=== PATIENT | female | born 1945 ===

== ENCOUNTER 2021-11-12 20:08 | Inpatient (IN) | payer OTHER, MEDICARE ==
[~2021-11-12 20:08] MED LIST: ISOVUE-370 76%-LOCM 1 ML ONE
[2021-11-12 20:26] LABS: #Eosinphils 0.2 thou/uL (0.0-0.7); #Lymphocytes 2.2 thou/uL (1.20-3.40); #Monocytes 0.6 thou/uL (0.11-0.59); #Neutrophils 7.9 thou/uL (1.40-6.50); %Eosinophils 2.3 % (0.0-10.0); %Lymphocytes 19.6 % (21.0-51.0); %Monocytes 5.6 % (0.0-10.0); %Neutrophils 72.5 % (42.0-75.0); Hemoglobin 14.8 g/dL (12.0-16.0); Mean Corpuscular HGB CONC 31.9 g/dL (32.0-36.0); Mean Corpuscular Hemoglobin 29.5 pg (27.0-31.0); Mean Corpuscular Volume 92.4 fL (78.0-98.0); Mean Platelet Volume 7.6 fL (7.4-10.4); Platelet Count 175 thou/uL (130-400); RBC Distribution Width 13.4 % (11.5-14.5); Red Blood Cell (RBC) Count 5.03 mill/uL (4.20-5.40); White Blood Cell (WBC) Count 10.9 thou/uL (4.8-10.8)
[2021-11-12 20:38] LABS: INR-International Normal Ratio 1.2; Prothrombin Time 15.2 sec (12.0-14.7)
[2021-11-12] MEDS ORDERED: CEFAZOLIN 1 GM VIAL ONE (20:43)
[2021-11-12] MEDS ORDERED: Fentanyl 100 MCG/2 ML VIAL ONE ×3 (20:43→23:28)
[2021-11-12] MEDS ORDERED: Boostrix 0.5 ML (Tdap) VIAL ONE (20:43)
[2021-11-12 20:46] LABS: ALT (SGPT) 40 U/L (8-55); AST (SGOT) 45 U/L (5-34); Albumin 3.8 g/dL (3.4-4.8); Alcohol Less than 10 mg/dL (Less than 10); Alkaline Phosphatase 70 U/L (40-110); Anion Gap 18 mmol/L (10-20); BUN (Urea Nitrogen) 26 mg/dL (9.8-20.1); Bilirubin, Total 0.9 mg/dL (0.2-1.2); Calc. Creatinine Clearance 0 mL/min (70-130); Carbon Dioxide 19 mmol/L (23-31); Chloride 111 mmol/L (98-107); Globulin 2.4 g/dL (2.4-3.5); Glucose 136 mg/dL (83-110); Protein, Total 6.2 g/dL (5.8-8.1); Sodium 144 mmol/L (136-145)
[2021-11-12] MEDS ORDERED: Tranexamic Acid 1,000 MG/10 ML VIAL ONE (21:08)
[2021-11-12] MEDS ORDERED: Ondansetron PF 4 MG/2 ML Vial ONE (21:34)
[2021-11-12] MEDS ORDERED: Ondansetron ODT 4 MG TAB PO PRN (21:35)
[2021-11-12] MEDS ORDERED: Dextrose 5% in Water 1,000 ML IV PRN (21:35)
[2021-11-12] MEDS ORDERED: Dextrose 50% Abboject 50 ML SYRINGE SLOW IVP PRN (21:35)
[2021-11-12] MEDS ORDERED: hydrALAZINE 20 MG/ML VIAL SLOW IVP PRN (21:35)
[2021-11-12] MEDS ORDERED: Ondansetron PF 4 MG/2 ML Vial IVP PRN (21:35)
[2021-11-12] MEDS ORDERED: Sodium Chloride 0.9% 1,000 ML IV SCH (21:45)
[2021-11-12] MEDS ORDERED: Acetaminophen/Codeine 30-300mg Tablet PO PRN (21:48)
[2021-11-12 22:28] LABS: Magnesium 1.8 mg/dL (1.6-2.6); Phosphorus 3.5 mg/dL (2.3-4.7)
[2021-11-12 23:19] LABS: SARS-CoV-2 NAA Rapid Test Not Detected (NotDetected)
[2021-11-12 23:32] LABS: Lactic Acid 3.2 mmol/L (0.5-2.2)
[2021-11-12] MEDS ORDERED: Promethazine HCl 25 MG/ML VIAL IM PRN (23:46)
[2021-11-13 00:10] LABS: Hemoglobin 13.5 g/dL (12.0-16.0); Mean Corpuscular HGB CONC 31.3 g/dL (32.0-36.0); Mean Corpuscular Hemoglobin 29.7 pg (27.0-31.0); Mean Corpuscular Volume 94.7 fL (78.0-98.0); Mean Platelet Volume 7.9 fL (7.4-10.4); Platelet Count 131 thou/uL (130-400); RBC Distribution Width 13.3 % (11.5-14.5); Red Blood Cell (RBC) Count 4.54 mill/uL (4.20-5.40); White Blood Cell (WBC) Count 12.8 thou/uL (4.8-10.8)
[2021-11-13] MEDS: Acetaminophen 325 MG TAB PO SCH ×5 (00:52→23:36)
[2021-11-13] MEDS: Fentanyl 100 MCG/2 ML VIAL SLOW IVP PRN ×2 (01:16→05:15)
[2021-11-13] MEDS: Scopolamine 1.5 mg/72 hour Patch TD SCH (01:40)
[2021-11-13] MEDS ORDERED: Magnesium 2 GM/50 ML(in water) 2 GM in Premix Bag 1 BAG IVPB SCH (02:00)
[2021-11-13 03:46] LABS: Anion Gap 14 mmol/L (10-20); BUN (Urea Nitrogen) 26 mg/dL (9.8-20.1); Calc. Creatinine Clearance 74 mL/min (70-130); Carbon Dioxide 17 mmol/L (23-31); Chloride 113 mmol/L (98-107); Potassium 4.4 mmol/L (3.5-5.1); Sodium 140 mmol/L (136-145)
[2021-11-13 03:47] LABS: Calcium 8.6 mg/dL (7.8-10.44); Glucose 186 mg/dL (83-110); Magnesium 1.6 mg/dL (1.6-2.6)
[2021-11-13 06:59] LABS: #Lymphocytes 0.7 thou/uL (1.20-3.40); #Monocytes 0.7 thou/uL (0.11-0.59); #Neutrophils 7.7 thou/uL (1.40-6.50); %Basophils 0.3 % (0.0-1.0); %Eosinophils 0.3 % (0.0-10.0); %Lymphocytes 7.8 % (21.0-51.0); %Monocytes 7.5 % (0.0-10.0); Hemoglobin 13.2 g/dL (12.0-16.0); Mean Corpuscular HGB CONC 32.6 g/dL (32.0-36.0); Mean Platelet Volume 7.8 fL (7.4-10.4); Platelet Count 111 thou/uL (130-400); RBC Distribution Width 13.2 % (11.5-14.5); Red Blood Cell (RBC) Count 4.38 mill/uL (4.20-5.40); White Blood Cell (WBC) Count 9.1 thou/uL (4.8-10.8)
[2021-11-13 07:02] LABS: CK (CPK) 352 U/L (29-168); Lactic Acid 3.2 mmol/L (0.5-2.2); Phosphorus 3.9 mg/dL (2.3-4.7)
[2021-11-13] MEDS: Gabapentin 100 MG CAP PO SCH ×3 (08:07→21:27)
[2021-11-13] MEDS: Senokot S 8.6-50 MG TAB PO SCH ×2 (08:07→21:26)
[2021-11-13] MEDS: Polyethylene Glycol 3350 17 GM Packet PO SCH (08:07)
[2021-11-13] MEDS ORDERED: Famotidine 20 MG TAB PO SCH (09:00)
[2021-11-13] MEDS ORDERED: Fentanyl 100 MCG/2 ML VIAL SLOW IVP PRN (09:06)
[2021-11-13] MEDS: Sodium Chloride 0.9% 1,000 ML IV SCH ×2 (11:14→23:37)
[2021-11-13] MEDS: Acetaminophen/Codeine 30-300mg Tablet PO SCH ×2 (13:32→19:58)
[2021-11-13] MEDS: Cyclobenzaprine 10 MG TAB PO PRN (13:34)
[2021-11-13] MEDS ORDERED: SUGAMMADEX SODIUM 200 MG/2 ML VIAL ONE (16:50)
[2021-11-13] MEDS ORDERED: fentaNYL Citrate/PF 100 MCG/2 ML SYRINGE ONE ×2 (16:50→18:43)
[2021-11-13] MEDS ORDERED: Bupivacaine 0.25% HCL 30 ML VIAL ONE (17:06)
[2021-11-13] MEDS ORDERED: Lidocaine 1% w/Epinephrine 1:100K 20 ML VIAL ONE (17:06)
[2021-11-13] MEDS ORDERED: Dexamethasone 20 MG/5 ML VIAL ONE (17:25)
[2021-11-13] MEDS ORDERED: PHENYLEPHRINE-NS 100 MCG/ML 10 ML SYRINGE ONE (17:25)
[2021-11-13] MEDS ORDERED: Ondansetron PF 4 MG/2 ML Vial ONE (17:25)
[2021-11-13] MEDS ORDERED: PROPOFOL 200 MG/20 ML VIAL ONE (17:25)
[2021-11-13] MEDS ORDERED: Lidocaine 1% PF 5 ML VIAL ONE (17:25)
[2021-11-13] MEDS ORDERED: ePHEDrine 50 MG/ML VIAL ONE (17:25)
[2021-11-13] MEDS ORDERED: Promethazine HCl 25 MG/ML VIAL IM PRN (18:39)
[2021-11-13] MEDS ORDERED: Ondansetron HCl/PF 4 MG/2 ML Vial IVP PRN (18:39)
[2021-11-13] MEDS ORDERED: Promethazine HCl 25 MG/ML VIAL IVPB PRN (18:39)
[2021-11-13] MEDS: Simvastatin 10 MG TAB PO SCH (21:27)
[2021-11-14] MEDS: Acetaminophen/Codeine 30-300mg Tablet PO SCH ×5 (00:29→23:19)
[2021-11-14] MEDS: Cyclobenzaprine 10 MG TAB PO PRN (00:30)
[2021-11-14] MEDS: Sodium Chloride 0.9% 1,000 ML IV SCH ×3 (04:31→21:25)
[2021-11-14] MEDS: Acetaminophen 325 MG TAB PO SCH ×4 (05:53→23:19)
[2021-11-14 06:16] LABS: #Lymphocytes 0.4 thou/uL (1.20-3.40); #Monocytes 0.4 thou/uL (0.11-0.59); %Basophils 0.1 % (0.0-1.0); %Eosinophils 0.2 % (0.0-10.0); %Lymphocytes 6.4 % (21.0-51.0); %Monocytes 5.4 % (0.0-10.0); %Neutrophils 87.9 % (42.0-75.0); Hemoglobin 10.6 g/dL (12.0-16.0); Mean Corpuscular HGB CONC 32.4 g/dL (32.0-36.0); Mean Corpuscular Hemoglobin 30.1 pg (27.0-31.0); Platelet Count 98 thou/uL (130-400); RBC Distribution Width 13.3 % (11.5-14.5); Red Blood Cell (RBC) Count 3.52 mill/uL (4.20-5.40); White Blood Cell (WBC) Count 6.8 thou/uL (4.8-10.8)
[2021-11-14 06:41] LABS: Anion Gap 13 mmol/L (10-20); BUN (Urea Nitrogen) 25 mg/dL (9.8-20.1); Calc. Creatinine Clearance 80 mL/min (70-130); Carbon Dioxide 18 mmol/L (23-31); Chloride 109 mmol/L (98-107); Glucose 181 mg/dL (83-110); Phosphorus 2.6 mg/dL (2.3-4.7); Sodium 136 mmol/L (136-145)
[2021-11-14 07:19] LABS: Hemoglobin A1c 5.6 % (4.0-6.0)
[2021-11-14] MEDS ORDERED: PHOS-NAK 1 PKT PACK PO SCH (08:00)
[2021-11-14] MEDS: Gabapentin 100 MG CAP PO SCH (09:19)
[2021-11-14] MEDS: Citalopram 20 MG TAB PO SCH (09:19)
[2021-11-14] MEDS: Senokot S 8.6-50 MG TAB PO SCH ×2 (09:20→21:24)
[2021-11-14] MEDS: Polyethylene Glycol 3350 17 GM Packet PO SCH (09:20)
[2021-11-14] MEDS: Gabapentin 300 MG CAP PO SCH ×2 (14:21→21:24)
[2021-11-14] MEDS: Lidocaine 5% Patch TD SCH (18:44)
[2021-11-14] MEDS: Simvastatin 10 MG TAB PO SCH (21:24)
[2021-11-14] MEDS: Zolpidem Tartrate 5 MG TAB PO PRN (23:19)
[2021-11-15] MEDS: Acetaminophen/Codeine 30-300mg Tablet PO SCH ×4 (05:32→23:07)
[2021-11-15] MEDS: Acetaminophen 325 MG TAB PO SCH ×4 (05:33→23:07)
[2021-11-15] MEDS: Transdermal Patch Removal TOP SCH (05:34)
[2021-11-15 06:09] LABS: #Eosinphils 0.1 thou/uL (0.0-0.7); #Lymphocytes 1.3 thou/uL (1.20-3.40); #Monocytes 0.6 thou/uL (0.11-0.59); #Neutrophils 5.1 thou/uL (1.40-6.50); %Basophils 0.2 % (0.0-1.0); %Eosinophils 1.3 % (0.0-10.0); %Lymphocytes 18.1 % (21.0-51.0); %Monocytes 8.2 % (0.0-10.0); %Neutrophils 72.2 % (42.0-75.0); Hemoglobin 9.7 g/dL (12.0-16.0); Mean Corpuscular HGB CONC 32.1 g/dL (32.0-36.0); Mean Corpuscular Hemoglobin 29.8 pg (27.0-31.0); Mean Corpuscular Volume 92.8 fL (78.0-98.0); Mean Platelet Volume 7.7 fL (7.4-10.4); Platelet Count 91 thou/uL (130-400); RBC Distribution Width 13.4 % (11.5-14.5); Red Blood Cell (RBC) Count 3.25 mill/uL (4.20-5.40)
[2021-11-15 06:28] LABS: Anion Gap 10 mmol/L (10-20); BUN (Urea Nitrogen) 23 mg/dL (9.8-20.1); Calc. Creatinine Clearance 90 mL/min (70-130); Calcium 8.5 mg/dL (7.8-10.44); Carbon Dioxide 22 mmol/L (23-31); Chloride 109 mmol/L (98-107); Glucose 118 mg/dL (83-110); Magnesium 2.1 mg/dL (1.6-2.6); Phosphorus 2.2 mg/dL (2.3-4.7); Potassium 4.2 mmol/L (3.5-5.1); Sodium 137 mmol/L (136-145)
[2021-11-15] MEDS ORDERED: fentaNYL Citrate/PF 100 MCG/2 ML SYRINGE ONE ×2 (07:17→08:58)
[2021-11-15] MEDS ORDERED: Dexmedetomidine 200 MCG/2 ML VIAL ONE (07:17)
[2021-11-15] MEDS ORDERED: Bupivacaine PF 0.5% 30 ML VIAL ONE (07:18)
[2021-11-15] MEDS ORDERED: PROPOFOL 200 MG/20 ML VIAL ONE (07:32)
[2021-11-15] MEDS ORDERED: Lidocaine 1% PF 5 ML VIAL ONE (07:32)
[2021-11-15] MEDS ORDERED: Ondansetron PF 4 MG/2 ML Vial ONE (07:32)
[2021-11-15] MEDS ORDERED: Dexamethasone 20 MG/5 ML VIAL ONE (07:32)
[2021-11-15] MEDS ORDERED: Sodium Chloride 0.9% 100 ML ONE (07:58)
[2021-11-15] MEDS ORDERED: CEFAZOLIN 2 GM VIAL ONE (07:58)
[2021-11-15] MEDS ORDERED: ceFAZolin 2 GM/Dextrose 50 ML 2 GM in Premix Bag 1 BAG IVPB SCH (08:00)
[2021-11-15] MEDS ORDERED: Sodium Phosphate 30 MMOL in Sodium Chloride 0.9% 250 ML 250 ML IVPB SCH (08:15)
[2021-11-15] MEDS: Citalopram 20 MG TAB PO SCH (09:23)
[2021-11-15] MEDS: Polyethylene Glycol 3350 17 GM Packet PO SCH (09:24)
[2021-11-15] MEDS: Senokot S 8.6-50 MG TAB PO SCH ×2 (09:24→20:28)
[2021-11-15] MEDS: Gabapentin 300 MG CAP PO SCH ×3 (09:24→20:27)
[2021-11-15] MEDS ORDERED: Ondansetron HCl/PF 4 MG/2 ML Vial IVP PRN (09:37)
[2021-11-15] MEDS ORDERED: Promethazine HCl 25 MG/ML VIAL IVPB PRN (09:37)
[2021-11-15] MEDS ORDERED: Promethazine HCl 25 MG/ML VIAL IM PRN (09:37)
[2021-11-15] MEDS: CEFAZOLIN 2 GM in Sodium Chloride 0.9% 100 ML IVPB SCH ×2 (15:16→23:13)
[2021-11-15] MEDS: Lidocaine 5% Patch TD SCH (17:09)
[2021-11-15] MEDS: Cyclobenzaprine 10 MG TAB PO PRN (20:28)
[2021-11-15] MEDS: Simvastatin 10 MG TAB PO SCH (20:28)
[2021-11-15] MEDS: Scopolamine 1.5 mg/72 hour Patch TD SCH (23:14)
[2021-11-15] MEDS: Zolpidem Tartrate 5 MG TAB PO PRN (23:14)
[2021-11-16] MEDS: Acetaminophen/Codeine 30-300mg Tablet PO SCH ×4 (05:42→23:42)
[2021-11-16 06:27] LABS: #Lymphocytes 0.7 thou/uL (1.20-3.40); #Monocytes 0.6 thou/uL (0.11-0.59); #Neutrophils 6.6 thou/uL (1.40-6.50); %Eosinophils 0.5 % (0.0-10.0); %Lymphocytes 8.4 % (21.0-51.0); %Monocytes 7.3 % (0.0-10.0); %Neutrophils 83.9 % (42.0-75.0); Hemoglobin 9.4 g/dL (12.0-16.0); Mean Corpuscular HGB CONC 32.8 g/dL (32.0-36.0); Mean Corpuscular Hemoglobin 30.7 pg (27.0-31.0); Mean Corpuscular Volume 93.5 fL (78.0-98.0); Mean Platelet Volume 8.2 fL (7.4-10.4); Platelet Count 107 thou/uL (130-400); RBC Distribution Width 13.4 % (11.5-14.5); Red Blood Cell (RBC) Count 3.06 mill/uL (4.20-5.40); White Blood Cell (WBC) Count 7.8 thou/uL (4.8-10.8)
[2021-11-16 06:36] LABS: Anion Gap 12 mmol/L (10-20); BUN (Urea Nitrogen) 22 mg/dL (9.8-20.1); Calc. Creatinine Clearance 100 mL/min (70-130); Calcium 8.6 mg/dL (7.8-10.44); Carbon Dioxide 24 mmol/L (23-31); Chloride 108 mmol/L (98-107); Glucose 146 mg/dL (83-110); Magnesium 2.1 mg/dL (1.6-2.6); Phosphorus 2.5 mg/dL (2.3-4.7); Potassium 4.5 mmol/L (3.5-5.1); Sodium 139 mmol/L (136-145)
[2021-11-16] MEDS: Transdermal Patch Removal TOP SCH (06:54)
[2021-11-16] MEDS: Acetaminophen 325 MG TAB PO SCH ×4 (06:54→23:41)
[2021-11-16] MEDS ORDERED: PHOS-NAK 1 PKT PACK PO SCH (07:45)
[2021-11-16] MEDS: Citalopram 20 MG TAB PO SCH (08:51)
[2021-11-16] MEDS: Gabapentin 300 MG CAP PO SCH ×3 (08:51→20:54)
[2021-11-16] MEDS: Polyethylene Glycol 3350 17 GM Packet PO SCH (08:52)
[2021-11-16] MEDS: Senokot S 8.6-50 MG TAB PO SCH ×2 (08:52→20:55)
[2021-11-16] MEDS: Lidocaine 5% Patch TD SCH (17:40)
[2021-11-16] MEDS: Simvastatin 10 MG TAB PO SCH (20:55)
[2021-11-16] MEDS: Zolpidem Tartrate 5 MG TAB PO PRN (23:44)
[2021-11-17] MEDS: Acetaminophen 325 MG TAB PO SCH ×4 (04:59→23:56)
[2021-11-17] MEDS: Acetaminophen/Codeine 30-300mg Tablet PO SCH ×4 (05:00→23:55)
[2021-11-17] MEDS: Transdermal Patch Removal TOP SCH (06:42)
[2021-11-17] MEDS: Gabapentin 300 MG CAP PO SCH ×3 (09:05→20:57)
[2021-11-17] MEDS: Polyethylene Glycol 3350 17 GM Packet PO SCH (09:05)
[2021-11-17] MEDS: Citalopram 20 MG TAB PO SCH (09:08)
[2021-11-17] MEDS: Senokot S 8.6-50 MG TAB PO SCH ×2 (09:09→20:57)
[2021-11-17] MEDS: Lidocaine 5% Patch TD SCH (18:32)
[2021-11-17] MEDS: Simvastatin 10 MG TAB PO SCH (20:57)
[2021-11-18] MEDS: Acetaminophen/Codeine 30-300mg Tablet PO SCH ×4 (06:02→23:40)
[2021-11-18] MEDS: Transdermal Patch Removal TOP SCH (06:03)
[2021-11-18] MEDS: Acetaminophen 325 MG TAB PO SCH ×4 (06:03→23:41)
[2021-11-18] MEDS: Gabapentin 300 MG CAP PO SCH ×3 (08:45→20:39)
[2021-11-18] MEDS: Polyethylene Glycol 3350 17 GM Packet PO SCH (08:45)
[2021-11-18] MEDS: Citalopram 20 MG TAB PO SCH (08:45)
[2021-11-18] MEDS: Senokot S 8.6-50 MG TAB PO SCH ×2 (10:24→20:39)
[2021-11-18] MEDS: Lidocaine 5% Patch TD SCH (17:40)
[2021-11-18] MEDS: Zolpidem Tartrate 5 MG TAB PO PRN (20:39)
[2021-11-18] MEDS: Simvastatin 10 MG TAB PO SCH (20:40)
[2021-11-19] MEDS: Scopolamine 1.5 mg/72 hour Patch TD SCH (01:27)
[2021-11-19] MEDS: Acetaminophen/Codeine 30-300mg Tablet PO SCH ×4 (05:56→23:54)
[2021-11-19] MEDS: Acetaminophen 325 MG TAB PO SCH ×4 (05:57→23:55)
[2021-11-19] MEDS: Transdermal Patch Removal TOP SCH (05:58)
[2021-11-19 08:39] LABS: #Eosinphils 0.4 thou/uL (0.0-0.7); #Monocytes 0.6 thou/uL (0.11-0.59); #Neutrophils 4.4 thou/uL (1.40-6.50); %Basophils 0.3 % (0.0-1.0); %Eosinophils 5.7 % (0.0-10.0); %Lymphocytes 15.8 % (21.0-51.0); %Monocytes 9.2 % (0.0-10.0); Hemoglobin 10.1 g/dL (12.0-16.0); Mean Corpuscular HGB CONC 32.4 g/dL (32.0-36.0); Mean Corpuscular Hemoglobin 30.3 pg (27.0-31.0); Mean Corpuscular Volume 93.6 fL (78.0-98.0); Mean Platelet Volume 7.9 fL (7.4-10.4); Platelet Count 149 thou/uL (130-400); RBC Distribution Width 14.1 % (11.5-14.5); Red Blood Cell (RBC) Count 3.34 mill/uL (4.20-5.40); White Blood Cell (WBC) Count 6.3 thou/uL (4.8-10.8)
[2021-11-19] MEDS: Senokot S 8.6-50 MG TAB PO SCH ×2 (09:20→20:46)
[2021-11-19] MEDS: Citalopram 20 MG TAB PO SCH (09:20)
[2021-11-19] MEDS: Polyethylene Glycol 3350 17 GM Packet PO SCH (09:20)
[2021-11-19] MEDS: Gabapentin 300 MG CAP PO SCH ×3 (09:21→20:46)
[2021-11-19] MEDS ORDERED: Iopamidol-370 76% 500 ML 1 ML ONE (11:42)
[2021-11-19] MEDS ORDERED: GASTROGRAFIN 30 ML BOT ONE (11:42)
[2021-11-19] MEDS ORDERED: Magnesium Citrate 300 ML BOT PO SCH (11:45)
[2021-11-19] MEDS ORDERED: Sodium Chloride 0.9% 1,000 ML IV SCH (16:15)
[2021-11-19 16:23] LABS: Anion Gap 13 mmol/L (10-20); BUN (Urea Nitrogen) 21 mg/dL (9.8-20.1); Calc. Creatinine Clearance 105 mL/min (70-130); Calcium 8.7 mg/dL (7.8-10.44); Carbon Dioxide 26 mmol/L (23-31); Chloride 99 mmol/L (98-107); Glucose 102 mg/dL (83-110); Magnesium 1.8 mg/dL (1.6-2.6); Phosphorus 3.7 mg/dL (2.3-4.7); Potassium 4.2 mmol/L (3.5-5.1); Sodium 134 mmol/L (136-145)
[2021-11-19 16:27] LABS: Bacteria/HPF None Seen HPF (None Seen); Bilirubin Negative (Negative); Blood, Urine Negative (Negative); Clarity Clear (Clear); Glucose, Urine (Dipstick) Normal (Negative); Ketone, Urine Negative (Negative); Leukocyte Negative Leu/uL (Negative); Nitrite Negative (Negative); Protein, Urine (Dipstick) Negative (Neg-Trace); RBC/HPF 0-3 HPF (0-3); Specific Gravity, Urine 1.011 (1.002-1.036); Squamous Epithelial 0-3 HPF (0-3); Urobilinogen Normal mg/dL (Less than 2); WBC/HPF 0-3 HPF (0-3)
[2021-11-19 16:29] LABS: Urine Culture Reflex No No
[2021-11-19] MEDS: Lidocaine 5% Patch TD SCH (18:11)
[2021-11-19] MEDS: Ferrous Sulfate 325 MG TAB PO SCH (18:12)
[2021-11-19] MEDS ORDERED: Calcium Carbonate 500 MG ChewTAB PO PRN (18:48)
[2021-11-19] MEDS ORDERED: Sodium Chloride 1 GM TAB PO SCH (19:00)
[2021-11-19] MEDS ORDERED: Furosemide 20 MG/2 ML VIAL SLOW IVP SCH (20:00)
[2021-11-19] MEDS ORDERED: Ketorolac Tromethamine 30 MG/ML VIAL IVP SCH (20:00)
[2021-11-19] MEDS: Ascorbic Acid 500 mg Chewable Tablet PO SCH (20:45)
[2021-11-19] MEDS: Simvastatin 10 MG TAB PO SCH (20:46)
[2021-11-20] MEDS ORDERED: Albuterol 200 PUFF (6.7GM INHALER) INH PRN (03:25)
[2021-11-20] MEDS ORDERED: Furosemide 40 MG/4 ML VIAL SLOW IVP SCH ×2 (05:15)
[2021-11-20] MEDS: Acetaminophen/Codeine 30-300mg Tablet PO SCH ×3 (05:29→18:32)
[2021-11-20] MEDS: Acetaminophen 325 MG TAB PO SCH ×3 (05:29→18:33)
[2021-11-20] MEDS: Transdermal Patch Removal TOP SCH (06:51)
[2021-11-20 07:02] LABS: #Eosinphils 0.2 thou/uL (0.0-0.7); #Lymphocytes 0.9 thou/uL (1.20-3.40); #Monocytes 0.4 thou/uL (0.11-0.59); %Basophils 0.1 % (0.0-1.0); %Eosinophils 2.1 % (0.0-10.0); %Lymphocytes 12.5 % (21.0-51.0); %Neutrophils 80.3 % (42.0-75.0); Hemoglobin 11.3 g/dL (12.0-16.0); Mean Corpuscular HGB CONC 31.3 g/dL (32.0-36.0); Mean Corpuscular Hemoglobin 29.9 pg (27.0-31.0); Mean Corpuscular Volume 95.5 fL (78.0-98.0); Mean Platelet Volume 7.7 fL (7.4-10.4); Platelet Count 176 thou/uL (130-400); RBC Distribution Width 14.4 % (11.5-14.5); Red Blood Cell (RBC) Count 3.79 mill/uL (4.20-5.40); White Blood Cell (WBC) Count 7.5 thou/uL (4.8-10.8)
[2021-11-20 07:21] LABS: Anion Gap 16 mmol/L (10-20); BUN (Urea Nitrogen) 22 mg/dL (9.8-20.1); Calc. Creatinine Clearance 94 mL/min (70-130); Calcium 9.6 mg/dL (7.8-10.44); Carbon Dioxide 25 mmol/L (23-31); Chloride 99 mmol/L (98-107); Glucose 94 mg/dL (83-110); Magnesium 2.1 mg/dL (1.6-2.6); Phosphorus 4.2 mg/dL (2.3-4.7); Potassium 4.3 mmol/L (3.5-5.1); Sodium 136 mmol/L (136-145)
[2021-11-20] MEDS: Senokot S 8.6-50 MG TAB PO SCH ×2 (08:53→21:03)
[2021-11-20] MEDS: Ascorbic Acid 500 mg Chewable Tablet PO SCH ×2 (08:53→21:01)
[2021-11-20] MEDS: Polyethylene Glycol 3350 17 GM Packet PO SCH (08:53)
[2021-11-20] MEDS: Citalopram 20 MG TAB PO SCH (08:54)
[2021-11-20] MEDS: Sodium Chloride 1 GM TAB PO SCH ×3 (08:54→21:03)
[2021-11-20] MEDS: Gabapentin 300 MG CAP PO SCH ×3 (08:54→21:02)
[2021-11-20] MEDS: Ferrous Sulfate 325 MG TAB PO SCH ×2 (08:54→18:31)
[2021-11-20] MEDS: Albuterol 200 PUFF (6.7GM INHALER) INH SCH ×3 (08:55→18:34)
[2021-11-20] MEDS: Lidocaine 5% Patch TD SCH (18:32)
[2021-11-20] MEDS: Enoxaparin Sodium 40 MG/0.4 ML SYRINGE SC SCH (21:01)
[2021-11-20] MEDS: Cyclobenzaprine 10 MG TAB PO PRN (21:01)
[2021-11-20] MEDS: Simvastatin 10 MG TAB PO SCH (21:03)
[2021-11-20] MEDS: Zolpidem Tartrate 5 MG TAB PO PRN (21:04)
[2021-11-21] MEDS: Acetaminophen 325 MG TAB PO SCH ×4 (00:57→18:00)
[2021-11-21] MEDS: Acetaminophen/Codeine 30-300mg Tablet PO SCH ×5 (00:58→18:00)
[2021-11-21] MEDS: Albuterol 200 PUFF (6.7GM INHALER) INH SCH ×4 (01:49→22:44)
[2021-11-21] MEDS: Transdermal Patch Removal TOP SCH (05:51)
[2021-11-21 06:15] LABS: #Lymphocytes 0.5 thou/uL (1.20-3.40); #Monocytes 0.6 thou/uL (0.11-0.59); #Neutrophils 9.8 thou/uL (1.40-6.50); %Eosinophils 0.2 % (0.0-10.0); %Lymphocytes 4.4 % (21.0-51.0); %Monocytes 5.8 % (0.0-10.0); %Neutrophils 89.7 % (42.0-75.0); Mean Corpuscular HGB CONC 31.5 g/dL (32.0-36.0); Mean Corpuscular Hemoglobin 29.8 pg (27.0-31.0); Mean Corpuscular Volume 94.5 fL (78.0-98.0); Mean Platelet Volume 7.5 fL (7.4-10.4); Platelet Count 187 thou/uL (130-400); RBC Distribution Width 14.3 % (11.5-14.5); Red Blood Cell (RBC) Count 3.35 mill/uL (4.20-5.40); White Blood Cell (WBC) Count 10.9 thou/uL (4.8-10.8)
[2021-11-21 06:36] LABS: Anion Gap 16 mmol/L (10-20); BUN (Urea Nitrogen) 34 mg/dL (9.8-20.1); Calc. Creatinine Clearance 79 mL/min (70-130); Calcium 9.4 mg/dL (7.8-10.44); Carbon Dioxide 24 mmol/L (23-31); Chloride 97 mmol/L (98-107); Glucose 136 mg/dL (83-110); Magnesium 2.1 mg/dL (1.6-2.6); Phosphorus 4.1 mg/dL (2.3-4.7); Potassium 4.2 mmol/L (3.5-5.1); Sodium 133 mmol/L (136-145)
[2021-11-21] MEDS: Ascorbic Acid 500 mg Chewable Tablet PO SCH ×2 (09:38→20:32)
[2021-11-21] MEDS: Sodium Chloride 1 GM TAB PO SCH ×3 (09:39→20:32)
[2021-11-21] MEDS: Senokot S 8.6-50 MG TAB PO SCH ×2 (09:39→20:33)
[2021-11-21] MEDS: Citalopram 20 MG TAB PO SCH (09:39)
[2021-11-21] MEDS: Ferrous Sulfate 325 MG TAB PO SCH ×2 (09:39→16:41)
[2021-11-21] MEDS: Gabapentin 300 MG CAP PO SCH ×2 (09:42→20:32)
[2021-11-21] MEDS: Polyethylene Glycol 3350 17 GM Packet PO SCH (11:30)
[2021-11-21] MEDS: Lidocaine 5% Patch TD SCH (18:01)
[2021-11-21] MEDS: Enoxaparin Sodium 40 MG/0.4 ML SYRINGE SC SCH (20:31)
[2021-11-21] MEDS: Cyclobenzaprine 10 MG TAB PO PRN (20:32)
[2021-11-21] MEDS: Simvastatin 10 MG TAB PO SCH (20:32)
[2021-11-21] MEDS: Zolpidem Tartrate 5 MG TAB PO PRN (20:32)
[2021-11-22] MEDS: Acetaminophen 325 MG TAB PO SCH ×4 (00:31→18:25)
[2021-11-22] MEDS: Acetaminophen/Codeine 30-300mg Tablet PO SCH ×4 (00:31→18:26)
[2021-11-22] MEDS: Scopolamine 1.5 mg/72 hour Patch TD SCH (00:32)
[2021-11-22] MEDS: Albuterol 200 PUFF (6.7GM INHALER) INH SCH ×4 (00:48→20:04)
[2021-11-22] MEDS: Transdermal Patch Removal TOP SCH (06:19)
[2021-11-22 08:33] LABS: #Eosinphils 0.2 thou/uL (0.0-0.7); #Lymphocytes 0.3 thou/uL (1.20-3.40); #Monocytes 0.4 thou/uL (0.11-0.59); #Neutrophils 5.7 thou/uL (1.40-6.50); %Basophils 0.2 % (0.0-1.0); %Eosinophils 2.7 % (0.0-10.0); %Lymphocytes 4.3 % (21.0-51.0); %Monocytes 6.4 % (0.0-10.0); %Neutrophils 86.4 % (42.0-75.0); Hemoglobin 9.8 g/dL (12.0-16.0); Mean Corpuscular HGB CONC 31.4 g/dL (32.0-36.0); Mean Corpuscular Hemoglobin 29.7 pg (27.0-31.0); Mean Corpuscular Volume 94.6 fL (78.0-98.0); Mean Platelet Volume 7.3 fL (7.4-10.4); Platelet Count 191 thou/uL (130-400); Red Blood Cell (RBC) Count 3.29 mill/uL (4.20-5.40); White Blood Cell (WBC) Count 6.6 thou/uL (4.8-10.8)
[2021-11-22] MEDS: Gabapentin 300 MG CAP PO SCH ×2 (08:53→21:30)
[2021-11-22] MEDS: Sodium Chloride 1 GM TAB PO SCH ×3 (08:53→21:30)
[2021-11-22] MEDS: Ferrous Sulfate 325 MG TAB PO SCH ×2 (08:53→18:25)
[2021-11-22] MEDS: Ascorbic Acid 500 mg Chewable Tablet PO SCH ×2 (08:53→21:30)
[2021-11-22] MEDS: Citalopram 20 MG TAB PO SCH (08:53)
[2021-11-22] MEDS: Polyethylene Glycol 3350 17 GM Packet PO SCH (08:54)
[2021-11-22] MEDS: Senokot S 8.6-50 MG TAB PO SCH ×2 (08:54→21:30)
[2021-11-22 09:03] LABS: Anion Gap 16 mmol/L (10-20); BUN (Urea Nitrogen) 32 mg/dL (9.8-20.1); Calc. Creatinine Clearance 105 mL/min (70-130); Calcium 8.8 mg/dL (7.8-10.44); Carbon Dioxide 26 mmol/L (23-31); Chloride 95 mmol/L (98-107); Glucose 93 mg/dL (83-110); Magnesium 2.1 mg/dL (1.6-2.6); Phosphorus 2.5 mg/dL (2.3-4.7); Potassium 3.9 mmol/L (3.5-5.1); Sodium 133 mmol/L (136-145)
[2021-11-22] MEDS: Lidocaine 5% Patch TD SCH (18:27)
[2021-11-22] MEDS: Simvastatin 10 MG TAB PO SCH (21:30)
[2021-11-22] MEDS: Cyclobenzaprine 10 MG TAB PO PRN (21:30)
[2021-11-22] MEDS: Enoxaparin Sodium 40 MG/0.4 ML SYRINGE SC SCH (21:30)
[2021-11-22] MEDS: Zolpidem Tartrate 5 MG TAB PO PRN (21:30)
[2021-11-23] MEDS: Acetaminophen 325 MG TAB PO SCH ×5 (00:19→23:48)
[2021-11-23] MEDS: Acetaminophen/Codeine 30-300mg Tablet PO SCH ×2 (00:20→05:16)
[2021-11-23] MEDS: Albuterol 200 PUFF (6.7GM INHALER) INH SCH ×3 (00:20→12:31)
[2021-11-23] MEDS: Transdermal Patch Removal TOP SCH (05:16)
[2021-11-23 06:05] LABS: Anion Gap 14 mmol/L (10-20); BUN (Urea Nitrogen) 25 mg/dL (9.8-20.1); Calc. Creatinine Clearance 113 mL/min (70-130); Calcium 8.7 mg/dL (7.8-10.44); Carbon Dioxide 26 mmol/L (23-31); Chloride 98 mmol/L (98-107); Glucose 86 mg/dL (83-110); Magnesium 2.3 mg/dL (1.6-2.6); Phosphorus 2.8 mg/dL (2.3-4.7); Potassium 3.7 mmol/L (3.5-5.1); Sodium 134 mmol/L (136-145)
[2021-11-23 06:06] LABS: Band 6 % (5-11); Eosinophils 1 % (0-10); Hemoglobin 9.6 g/dL (12.0-16.0); Hypochromia SLIGHT = 6-15 cells (100X) (0-5/hpf); Lymphocytes 9 % (21-51); MDiff Complete? YES; Mean Corpuscular HGB CONC 30.7 g/dL (32.0-36.0); Mean Corpuscular Hemoglobin 29.3 pg (27.0-31.0); Mean Corpuscular Volume 95.5 fL (78.0-98.0); Mean Platelet Volume 7.1 fL (7.4-10.4); Monocytes 9 % (0-10); Neutrophil 75 % (42-75); Platelet Count 219 thou/uL (130-400); Platelet Morphology Comment Appears Adequate; RBC Distribution Width 14.3 % (11.5-14.5); Red Blood Cell (RBC) Count 3.28 mill/uL (4.20-5.40); White Blood Cell (WBC) Count 5.6 thou/uL (4.8-10.8)
[2021-11-23] MEDS: Citalopram 20 MG TAB PO SCH (08:58)
[2021-11-23] MEDS: Ascorbic Acid 500 mg Chewable Tablet PO SCH ×2 (08:58→22:15)
[2021-11-23] MEDS: Ferrous Sulfate 325 MG TAB PO SCH ×3 (08:58→22:14)
[2021-11-23] MEDS: Gabapentin 300 MG CAP PO SCH ×2 (08:59→22:15)
[2021-11-23] MEDS: Sodium Chloride 1 GM TAB PO SCH ×3 (08:59→22:14)
[2021-11-23] MEDS: Polyethylene Glycol 3350 17 GM Packet PO SCH (09:00)
[2021-11-23] MEDS: Senokot S 8.6-50 MG TAB PO SCH ×2 (09:00→22:16)
[2021-11-23] MEDS ORDERED: traMADol HCl 50 MG TAB PO SCH (11:30)
[2021-11-23] MEDS: traMADol HCl 50 MG TAB PO SCH ×3 (12:30→23:48)
[2021-11-23 14:41] VITALS: BMI 37.9
[2021-11-23] MEDS: Ibuprofen 200 MG TAB PO SCH ×2 (15:00→22:14)
[2021-11-23] MEDS: Acetaminophen/Codeine 30-300mg Tablet PO PRN ×2 (15:02→22:15)
[2021-11-23] MEDS: Lidocaine 5% Patch TD SCH (18:02)
[2021-11-23] MEDS: Simvastatin 10 MG TAB PO SCH (22:15)
[2021-11-23] MEDS: Enoxaparin Sodium 40 MG/0.4 ML SYRINGE SC SCH (22:16)
[2021-11-23] MEDS: Zolpidem Tartrate 5 MG TAB PO PRN (23:47)
[2021-11-24] MEDS: Acetaminophen 325 MG TAB PO SCH ×4 (05:11→23:47)
[2021-11-24] MEDS: traMADol HCl 50 MG TAB PO SCH ×4 (05:11→23:46)
[2021-11-24] MEDS: Ibuprofen 200 MG TAB PO SCH ×3 (05:12→21:07)
[2021-11-24] MEDS: Albuterol 200 PUFF (6.7GM INHALER) INH SCH (06:23)
[2021-11-24] MEDS: Transdermal Patch Removal TOP SCH (06:24)
[2021-11-24 06:47] LABS: Anion Gap 14 mmol/L (10-20); BUN (Urea Nitrogen) 20 mg/dL (9.8-20.1); Calc. Creatinine Clearance 109 mL/min (70-130); Calcium 8.6 mg/dL (7.8-10.44); Carbon Dioxide 24 mmol/L (23-31); Chloride 102 mmol/L (98-107); Glucose 83 mg/dL (83-110); Magnesium 2.1 mg/dL (1.6-2.6); Phosphorus 3.2 mg/dL (2.3-4.7); Potassium 4.2 mmol/L (3.5-5.1); Sodium 136 mmol/L (136-145)
[2021-11-24] MEDS: Gabapentin 300 MG CAP PO SCH ×2 (09:13→21:06)
[2021-11-24] MEDS: Citalopram 20 MG TAB PO SCH (09:13)
[2021-11-24] MEDS: Sodium Chloride 1 GM TAB PO SCH ×3 (09:13→21:07)
[2021-11-24] MEDS: Ascorbic Acid 500 mg Chewable Tablet PO SCH ×2 (09:13→21:05)
[2021-11-24] MEDS: Ferrous Sulfate 325 MG TAB PO SCH ×2 (09:13→21:08)
[2021-11-24] MEDS: Senokot S 8.6-50 MG TAB PO SCH ×2 (09:14→21:09)
[2021-11-24] MEDS: Polyethylene Glycol 3350 17 GM Packet PO SCH (09:14)
[2021-11-24] MEDS: Lidocaine 5% Patch TD SCH (17:41)
[2021-11-24] MEDS: Simvastatin 10 MG TAB PO SCH (21:07)
[2021-11-24] MEDS: Zolpidem Tartrate 5 MG TAB PO PRN (21:17)
[2021-11-24] MEDS: Guaifenesin DM 100-10/5 ML UDCUP PO PRN (21:17)
[2021-11-24] MEDS: Enoxaparin Sodium 40 MG/0.4 ML SYRINGE SC SCH (21:17)
[2021-11-25] MEDS ORDERED: Scopolamine 1.5 mg/72 hour Patch TD SCH (01:00)
[2021-11-25] MEDS: traMADol HCl 50 MG TAB PO SCH ×4 (05:23→23:38)
[2021-11-25] MEDS: Acetaminophen 325 MG TAB PO SCH ×4 (05:24→23:38)
[2021-11-25] MEDS: Ibuprofen 200 MG TAB PO SCH ×3 (05:25→23:39)
[2021-11-25] MEDS: Albuterol 200 PUFF (6.7GM INHALER) INH SCH ×7 (05:35→23:55)
[2021-11-25] MEDS: Guaifenesin DM 100-10/5 ML UDCUP PO PRN ×3 (06:24→17:42)
[2021-11-25] MEDS: Transdermal Patch Removal TOP SCH (06:26)
[2021-11-25] MEDS: Citalopram 20 MG TAB PO SCH (08:06)
[2021-11-25] MEDS: Polyethylene Glycol 3350 17 GM Packet PO SCH (08:06)
[2021-11-25] MEDS: Ascorbic Acid 500 mg Chewable Tablet PO SCH ×2 (08:06→21:11)
[2021-11-25] MEDS: Sodium Chloride 1 GM TAB PO SCH ×3 (08:06→21:15)
[2021-11-25] MEDS: Gabapentin 300 MG CAP PO SCH ×2 (08:06→21:12)
[2021-11-25] MEDS: Senokot S 8.6-50 MG TAB PO SCH ×2 (08:06→21:12)
[2021-11-25] MEDS: Ferrous Sulfate 325 MG TAB PO SCH ×2 (08:06→21:11)
[2021-11-25] MEDS ORDERED: Non-Formulary Item 1 EACH (Triamterene/Hydrochlorothiazid [Triamterene-Hctz 37.5-25 Mg Cp PO SCH (09:00)
[2021-11-25] MEDS: Lidocaine 5% Patch TD SCH (17:20)
[2021-11-25] MEDS: Simvastatin 10 MG TAB PO SCH (21:11)
[2021-11-25] MEDS: Cyclobenzaprine 10 MG TAB PO PRN (21:11)
[2021-11-25] MEDS: Enoxaparin Sodium 40 MG/0.4 ML SYRINGE SC SCH (21:12)
[2021-11-26] MEDS: Acetaminophen 325 MG TAB PO SCH ×3 (05:24→17:20)
[2021-11-26] MEDS: traMADol HCl 50 MG TAB PO SCH ×3 (05:24→17:20)
[2021-11-26] MEDS: Ibuprofen 200 MG TAB PO SCH ×3 (05:25→20:25)
[2021-11-26] MEDS: Transdermal Patch Removal TOP SCH (05:25)
[2021-11-26] MEDS: Albuterol 200 PUFF (6.7GM INHALER) INH SCH ×3 (05:25→17:20)
[2021-11-26] MEDS: Guaifenesin DM 100-10/5 ML UDCUP PO PRN ×4 (05:57→20:29)
[2021-11-26] MEDS: Ascorbic Acid 500 mg Chewable Tablet PO SCH ×3 (08:53→20:31)
[2021-11-26] MEDS: Sodium Chloride 1 GM TAB PO SCH ×3 (08:54→20:25)
[2021-11-26] MEDS: Gabapentin 300 MG CAP PO SCH ×2 (08:54→20:30)
[2021-11-26] MEDS: Citalopram 20 MG TAB PO SCH (08:54)
[2021-11-26] MEDS: Polyethylene Glycol 3350 17 GM Packet PO SCH (08:55)
[2021-11-26] MEDS: Senokot S 8.6-50 MG TAB PO SCH ×2 (08:55→20:25)
[2021-11-26] MEDS: Ferrous Sulfate 325 MG TAB PO SCH ×2 (08:55→20:30)
[2021-11-26 10:49] LABS: #Eosinphils 0.2 thou/uL (0.0-0.7); #Monocytes 0.6 thou/uL (0.11-0.59); #Neutrophils 6.4 thou/uL (1.40-6.50); %Basophils 0.3 % (0.0-1.0); %Eosinophils 2.3 % (0.0-10.0); %Lymphocytes 11.9 % (21.0-51.0); %Monocytes 7.1 % (0.0-10.0); %Neutrophils 78.4 % (42.0-75.0); Hemoglobin 9.4 g/dL (12.0-16.0); Mean Corpuscular HGB CONC 30.2 g/dL (32.0-36.0); Mean Corpuscular Hemoglobin 28.9 pg (27.0-31.0); Mean Corpuscular Volume 95.7 fL (78.0-98.0); Mean Platelet Volume 6.7 fL (7.4-10.4); Platelet Count 308 thou/uL (130-400); RBC Distribution Width 14.6 % (11.5-14.5); Red Blood Cell (RBC) Count 3.27 mill/uL (4.20-5.40); White Blood Cell (WBC) Count 8.2 thou/uL (4.8-10.8)
[2021-11-26 11:15] LABS: Anion Gap 10 mmol/L (10-20); BUN (Urea Nitrogen) 18 mg/dL (9.8-20.1); Calc. Creatinine Clearance 113 mL/min (70-130); Carbon Dioxide 28 mmol/L (23-31); Estimated GFR 77; Glucose 98 mg/dL (83-110); Potassium 4.3 mmol/L (3.5-5.1); Sodium 136 mmol/L (136-145)
[2021-11-26 11:36] LABS: Chloride 102 mmol/L (98-107)
[2021-11-26] MEDS: Azithromycin 250 MG TAB PO SCH (12:29)
[2021-11-26] MEDS: cefTRIAXone\\ROCEPHIN 2 GM in Sodium Chloride 0.9% 100 ML IVPB SCH (12:30)
[2021-11-26] MEDS: Lidocaine 5% Patch TD SCH (17:21)
[2021-11-26] MEDS: Enoxaparin Sodium 40 MG/0.4 ML SYRINGE SC SCH (20:25)
[2021-11-26] MEDS: Simvastatin 10 MG TAB PO SCH (20:30)
[2021-11-27] MEDS: traMADol HCl 50 MG TAB PO SCH ×3 (00:57→11:25)
[2021-11-27] MEDS: Acetaminophen 325 MG TAB PO SCH ×4 (00:58→17:20)
[2021-11-27] MEDS: Ibuprofen 200 MG TAB PO SCH ×2 (06:53→14:51)
[2021-11-27] MEDS: Transdermal Patch Removal TOP SCH (06:54)
[2021-11-27] MEDS ORDERED: Dexamethasone 4 MG TAB PO SCH (09:00)
[2021-11-27] MEDS ORDERED: Saccharomyces boulardii 250 MG CAP PO SCH (09:00)
[2021-11-27] MEDS: Gabapentin 300 MG CAP PO SCH (09:17)
[2021-11-27] MEDS: Citalopram 20 MG TAB PO SCH (09:19)
[2021-11-27] MEDS: Ferrous Sulfate 325 MG TAB PO SCH (09:19)
[2021-11-27] MEDS: Senokot S 8.6-50 MG TAB PO SCH (09:19)
[2021-11-27] MEDS: Sodium Chloride 1 GM TAB PO SCH ×2 (09:19→14:51)
[2021-11-27] MEDS: Polyethylene Glycol 3350 17 GM Packet PO SCH (09:21)
[2021-11-27] MEDS: Guaifenesin DM 100-10/5 ML UDCUP PO PRN ×2 (11:24→17:20)
[2021-11-27] MEDS: Azithromycin 250 MG TAB PO SCH (11:25)
[2021-11-27] MEDS: cefTRIAXone\\ROCEPHIN 2 GM in Sodium Chloride 0.9% 100 ML IVPB SCH (11:25)
[2021-11-27 15:16] VITALS: BP 123/90; TEMP 98.2
[2021-11-27] MEDS: Lidocaine 5% Patch TD SCH (17:20)
== END 2021-11-27 17:45 | disposition home or self-care (01) | DRG 957 ==
LOC: ERS 20:08 → CCU 21:35 → UNDOADMIN 21:35 → SURG A 11-14 00:07
PROVIDERS: ADMIT Specialist; ATTEND Surgery
PROC: 30233N1 Transfusion of Nonautologous Red Blood Cells into Peripheral Vein, Percutaneous Approach (ICD-10-PCS; principal; 2021-11-12)
PROC: 0H9U0ZZ Drainage of Left Breast, Open Approach (ICD-10-PCS; 2021-11-14)
PROC: 0PSH04Z Reposition Right Radius with Internal Fixation Device, Open Approach (ICD-10-PCS; 2021-11-15)
DX: S52.571A Other intraarticular fracture of lower end of right radius, initial encounter for closed fracture (principal); S06.6X9A Traumatic subarachnoid hemorrhage with loss of consciousness of unspecified duration, initial encounter; J12.82 Pneumonia due to coronavirus disease 2019; T79.6XXA Traumatic ischemia of muscle, initial encounter; J96.01 Acute respiratory failure with hypoxia; U07.1 COVID-19; S12.041A Nondisplaced lateral mass fracture of first cervical vertebra, initial encounter for closed fracture; S12.100A Unspecified displaced fracture of second cervical vertebra, initial encounter for closed fracture; N17.9 Acute kidney failure, unspecified; D62 Acute posthemorrhagic anemia; N13.30 Unspecified hydronephrosis; S52.91XA Unspecified fracture of right forearm, initial encounter for closed fracture; Z20.822 Contact with and (suspected) exposure to COVID-19; Z88.5 Allergy status to narcotic agent; E78.5 Hyperlipidemia, unspecified; I10 Essential (primary) hypertension; K21.9 Gastro-esophageal reflux disease without esophagitis; S10.91XA Abrasion of unspecified part of neck, initial encounter; S43.004A Unspecified dislocation of right shoulder joint, initial encounter; Z96.643 Presence of artificial hip joint, bilateral; Z96.653 Presence of artificial knee joint, bilateral; S20.02XA Contusion of left breast, initial encounter; S62.101A Fracture of unspecified carpal bone, right wrist, initial encounter for closed fracture; S20.212A Contusion of left front wall of thorax, initial encounter; S42.141A Displaced fracture of glenoid cavity of scapula, right shoulder, initial encounter for closed fracture; E83.39 Other disorders of phosphorus metabolism; V49.50XA Passenger injured in collision with unspecified motor vehicles in traffic accident, initial encounter; Z79.899 Other long term (current) drug therapy
CPT/HCPCS: 36415; 36416; 36430; 70450; 70498; 71045; 71260; 72040; 72125; 74177; 76000; 80048; 80053; 80307; 81001; 82550; 83036; 83605; 83735; 83880; 84100; 85025; 85610; 85730; 86850; 86900; 86901; 90715; 93005; 93970; 94640; 96365; 96375; 96376; C1713; C1776; C1889; G0390; J0690; J0696; J1100; J1650; J1885; J1940; J2405; J2550; J2704; J3010; J3475; J3490; J7050; J7620; J8540; P9016; Q0162; Q9963; Q9966; Q9967; S0020; U0002; U0003; U0005